=== PATIENT | female | born 1970 | race Caucasian/White ===

== ENCOUNTER 2016-11-19 08:33 | Observation (INO) | payer OTHER ==
[~2016-11-19 08:33] MED LIST: ALBUTEROL17 GM INH; DARVOCET-N 1001 EA PO; DARVOCET-N 1001 TAB PO; DIAMOX250 MG/TAB PO; LEVOTHROID137 MCG PO; LEVOTHYROXINE125 MCG; MELOXICAM7.5 M1 PO; MOTRIN800 MG PO; PERCOCET 5/3251 TAB PO; ULTRAM50 MG PO
[2016-11-19 09:35] LABS: eGFR VALUE FOR BLACK >90 mL/Min
[2016-11-19 11:34] LABS: BASO % 0.3 % (0-2); EOS % 1.2 % (0-7); EOSINOPHIL ABSOLUTE COUNT 0.1 tho/cmm (0.0-0.7); HCT-HEMATOCRIT 40.7 % (34.0-49.0); HGB-HEMOGLOBIN 13.4 gm/dl (12.0-15.5); IMMATURE GRANULOCYTES ABSOLUTE 0.02 tho/cmm (0-0.03); IMMATURE GRANULOCYTES PERCENT 0.3 % (0-0.3); LYMPH % 29.7 % (20-45); MCH (MEAN CORPUSCULAR HGB) 28.3 pg (28.0-32.0); MCHC MEAN CORPUSCULAR HGB CONC 32.9 % (32.0-36.0); MEAN PLATELET VOLUME 9.8 cmc (9.4-12.4); MONO % 5.3 % (0-12); MONOCYTE ABSOLUTE COUNT 0.4 tho/cmm (0.0-1.2); NEUTROPHIL ABSOLUTE COUNT 4.3 tho/cmm (1.6-8.0); NEUTROPHIL-AUTOMATED 4.3 tho/cmm (1.6-8.0); NEUTROPHILS % 63.2 % (40-80); PLATELET COUNT 277 tho/cmm (150-450); RED BLOOD COUNT 4.73 mil/cmm (4.00-5.20); WHITE BLOOD COUNT 6.8 tho/cmm (4.0-10.0)
[2016-11-19 11:36] LABS: INR 0.9 INR (0.9-1.1)
[2016-11-19 11:47] LABS: ALB/GLOB RATIO 1.1 (0.8-2.0); ALBUMIN 3.6 g/dl (3.5-5.0); ALKALINE PHOSPHATASE 109 U/L (33-138); ALT/SGPT 25 U/L (12-78); ANION GAP 14 mmol/L (0-20); AST/SGOT 14 U/L (10-40); BILIRUBIN,TOTAL 0.3 mg/dl (0-1.5); BLOOD UREA NITROGEN 13 mg/dl (6-24); CALCIUM 8.5 mg/dl (8.5-10.5); CARBON DIOXIDE-VENOUS 25 mmol/L (22-32); CHLORIDE 106 mmol/l (96-110); CREATININE 0.67 mg/dl (0.50-1.10); GLUCOSE 94 mg/dL (70-110); POTASSIUM 4.2 mmol/L (3.7-5.1); SODIUM 141 mmol/L (135-145); eGFR VALUE FOR BLACK >90 mL/Min
[2016-11-20 05:37] LABS: BASO % 0.3 % (0-2); EOS % 1.6 % (0-7); EOSINOPHIL ABSOLUTE COUNT 0.1 tho/cmm (0.0-0.7); HCT-HEMATOCRIT 40.7 % (34.0-49.0); HGB-HEMOGLOBIN 13.4 gm/dl (12.0-15.5); IMMATURE GRANULOCYTES ABSOLUTE 0.01 tho/cmm (0-0.03); IMMATURE GRANULOCYTES PERCENT 0.2 % (0-0.3); LYMPH % 43.2 % (20-45); LYMPH ABSOLUTE COUNT 2.6 tho/cmm (0.8-4.5); MCH (MEAN CORPUSCULAR HGB) 28.3 pg (28.0-32.0); MCHC MEAN CORPUSCULAR HGB CONC 32.9 % (32.0-36.0); MCV (MEAN CELL VOLUME) 85.9 fl (82.0-96.0); MEAN PLATELET VOLUME 9.3 cmc (9.4-12.4); MONO % 5.1 % (0-12); MONOCYTE ABSOLUTE COUNT 0.3 tho/cmm (0.0-1.2); NEUTROPHILS % 49.6 % (40-80); PLATELET COUNT 250 tho/cmm (150-450); RED BLOOD COUNT 4.74 mil/cmm (4.00-5.20); WHITE BLOOD COUNT 6.1 tho/cmm (4.0-10.0)
[2016-11-20 05:40] LABS: PROTHROMBIN TIME 11.7 SECONDS (9.0-13.6)
[2016-11-20 05:50] LABS: ANION GAP 10 mmol/L (0-20); BLOOD UREA NITROGEN 9 mg/dl (6-24); CALCIUM 8.8 mg/dl (8.5-10.5); CARBON DIOXIDE-VENOUS 27 mmol/L (22-32); CHLORIDE 110 mmol/l (96-110); CHOLESTEROL 163 mg/dl (120-200); CREATININE 0.56 mg/dl (0.50-1.10); GLUCOSE 96 mg/dL (70-110); HDL CHOLESTEROL 47 mg/dl (40-60); LDL CHOLESTEROL 88 mg/dl (0-99); POTASSIUM 4.2 mmol/L (3.7-5.1); SODIUM 143 mmol/L (135-145); TRIGLYCERIDES 143 mg/dl (<149); VLDL 29 mg/dl (0-30); eGFR VALUE FOR BLACK >90 mL/Min
[2016-11-21 12:47] LABS: INR 1.1 INR (0.9-1.1); PROTHROMBIN TIME 12.8 SECONDS (9.0-13.6)
[2016-11-21] MEDS ORDERED: XARELTO20 M1 PO (13:50)
[2016-11-21] MEDS ORDERED: TYLENOL325 M2 PO (14:01)
[2017-02-18] MEDS ORDERED: ASPIRIN EC81 MG PO (14:47)
== END 2016-11-21 14:35 ==
LOC: EDMED 08:33 → EMR2 13:17 → 5EB 17:02
PROVIDERS: Emergency Medicine; ADMIT Hospitalist
DX: R20.9 Unspecified disturbances of skin sensation (principal); I65.02 Occlusion and stenosis of left vertebral artery; E03.9 Hypothyroidism, unspecified; E66.9 Obesity, unspecified; Z90.49 Acquired absence of other specified parts of digestive tract; Z98.890 Other specified postprocedural states; Z98.51 Tubal ligation status; Z90.711 Acquired absence of uterus with remaining cervical stump; Z87.442 Personal history of urinary calculi; Z88.2 Allergy status to sulfonamides; Z79.899 Other long term (current) drug therapy
CPT/HCPCS: A9577; G0378; J1650; J2060; J7030; Q9967